=== PATIENT | female | born 1990 | race African-American/Black ===

== ENCOUNTER → 2020-12-19 | Outpatient (CLI) | payer OTHER ==
--- NOTE | 2020-12-19 16:42 | RAD ---
EXAM: Nuclear gastric emptying scan. HISTORY: Pain. COMPARISON: None. TECHNIQUE: Serial static images were obtained over the stomach following oral administration of 2 mCi 99m-Tc sulfur colloid. FINDINGS: The stomach empties into the small bowel without evidence of reflux in the area of the esop hagus. Gastric retention percents: 1 hour 99% (normal range 34.8-91%) 2 hour 47% (normal range 2.7-60%) 3 hour 31% (normal range 0.5-28%) 4 hour 15% (normal range 0-10%) The estimated time for half emptying of gastric contents, i.e. 'gastric emptying time' is 134 minutes (normal is 66 +/- 22 minutes). IMPRESSION: Delayed gastric emptying half-time and delayed gastric emptying at 1 hour, 3 hours and 4 hours. Electronically signed by: Cheri Gerard MD (12/19/2020 4:40 PM) [facility]
== END ==
LOC: NM 10:52
PROVIDERS: ATTEND Internal Medicine Gastroenterology
DX: R14.0 Abdominal distension (gaseous) (principal); R11.2 Nausea with vomiting, unspecified
CPT/HCPCS: 78264; A9541